=== PATIENT | female | born 1995 | race Caucasian/White ===

== ENCOUNTER 2017-06-03 00:59 | Observation (INO) | payer OTHER ==
[2017-06-03] MEDS ORDERED: Ketorolac INJ* 30 MG/ML 1 ML VIAL IV PUSH ONE (02:04)
[2017-06-03 02:13] LABS: Urine Appearance Cloudy; Urine Blood 3+ (Negative); Urine Color Red; Urine Ketones Trace (Negative); Urine Protein 2+(100 mg/dL) (Negative); Urine Specific Gravity 1.023 (1.010-1.030); Urine Urobilinogen Negative (Negative)
[2017-06-03 02:26] LABS: ABS Basophils 0 10^3/ul (0-0.2); ABS Eosinophils 0 10^3/ul (0-0.6); ABS Lymphocytes 1.5 10^3/ul (1.0-4.8); ABS Monocytes 1.4 10^3/ul (0-0.8); ABS Nucleated RBC 0 10^3/ul; Eosinophil % 0.2 % (0-6); Hematocrit 36 % (35-47); Hemoglobin 12.7 g/dl (12.0-16.0); Lymphocyte % 9.5 % (25-47); Mean Corpuscular HGB Conc 35 g/dl (31-36); Mean Corpuscular Hemoglobin 31 pg (27-31); Mean Corpuscular Volume 87 fL (80-97); Nucleated Red Blood Cells % 0; Platelet Count 227 10^3/ul (150-450); Red Blood Count 4.14 10^6/ul (4.0-5.4); Red Cell Distribution Width 13 % (10.5-15); White Blood Count 15.9 10^3/ul (3.5-10.8)
[2017-06-03 02:40] LABS: EGFR Non-African American 101.6 (>60)
[2017-06-03] MEDS ORDERED: Levofloxacin 750 MG IVPREMIX(* 750 MG/150 ML BAG IVPB ONE (03:36)
[2017-06-03] MEDS ORDERED: metroNIDAZOLE IV 500 MG/100ML* 500 MG/100 ML BAG IVPB ONE (03:37)
[2017-06-03] MEDS ORDERED: Morphine INJ* 4 MG/ML 1 ML CARPUJECT IV ONE (03:59)
[2017-06-03] MEDS ORDERED: Morphine VIAL* 4 MG/ML VIAL (1 ml vial) IV ONE ×2 (04:04→04:11)
[2017-06-03] MEDS ORDERED: Morphine VIAL* 4 MG/ML VIAL (1 ml vial) IV PRN (04:22)
[2017-06-03] MEDS ORDERED: Metoclopramide IV* 5 MG/ML 2 ML VIAL IV PRN (04:23)
[2017-06-03] MEDS ORDERED: NS 0.9% 1000 ML* 1,000 ML IV SCH (04:30)
--- NOTE | 2017-06-03 06:33 | ED ---
Sheila Mi Rebecca, scribed for Maximus Cortez MD on 06/03/17 at 0205 . Abdominal Pain/Female - HPI Summary HPI Summary: Pt is a 22 y/o F who presents to ED c/o abdominal pain. Sx began yesterday at approximately 1200 and worse since 0030, unchanged by Tums at 1600, Advil at 1730 and Tylenol at 0030. Pain is in the RLQ and characterized as aching. Sx slightly alleviated by vomiting. Additionally c/o N/V x2. Denies fever. PMHx HPV. LNMP / - sexually active and she has been spotting since then. - History of Current Complaint Chief Complaint: EDAbdPain Stated Complaint: ABD PAIN Time Seen by Provider: 06/03/17 01:53 Hx Obtained From: Patient Onset/Duration: Lasting Hours, Still Present Severity Initially: Severe - 8/10 Severity Currently: Moderate Pain Intensity: 5 Pain Scale Used: 0-10 Numeric Location: Discrete At: RLQ Character: Dull Alleviating Factor(s): Vomiting Associated Signs and Symptoms: Positive: Nausea, Vomiting Allergies/Adverse Reactions: Allergies Allergy/AdvReac Type Severity Reaction Status Date / Time Penicillins Allergy Unknown Verified 06/03/17 01:18 Reaction Details Home Medications: Home Medications NK [No Home Medications Reported] 06/03/17 [History Confirmed 06/03/17] PMH/Surg Hx/FS Hx/Imm Hx Endocrine/Hematology History: Denies: Hx Diabetes Cardiovascular History: Denies: Hx Hypertension Infectious Disease History: No Infectious Disease History: Denies: Traveled Outside the [place] in Last 30 Days - Family History Known Family History: Negative: Cardiac Disease - Social History Alcohol Use: Occasionally Substance Use Type: Reports: None Smoking Status (MU): Never Smoked Tobacco Review of Systems Negative: Fever Positive: Abdominal Pain, Vomiting, Nausea All Other Systems Reviewed And Are Negative: Yes Physical Exam - Summary Physical Exam Summary: Appearance: Well appearing, no pain distress Skin: warm, dry, reflects adequate perfusion Head/face: normal Eyes: EOMI, SENDY ENT: normal Neck: supple, non-tender Respiratory: CTA, breath sounds present Cardiovascular: RRR, pulses symmetrical Abdomen: mild LRQ tenderness, soft Bowel Sounds: present Musculoskeletal: normal, strength/ROM intact Neuro: normal, sensory motor intact, A&Ox3 Pelvic: She has a mild amount of blood in the vault, none from the cervix. No discharge. Right adnexal tenderness and no cervical motion tenderness. No left adnexal tenderness. Her cervix seems slightly displaced toward the left. Triage Information Reviewed: Yes Vital Signs On Initial Exam: Initial Vitals Temp Pulse Resp BP Pulse Ox 98 F 87 15 99/55 98 06/03/17 01:14 06/03/17 01:14 06/03/17 01:14 06/03/17 01:14 06/03/17 01:14 Vital Signs Reviewed: Yes Diagnostics - Vital Signs Vital Signs Temp Pulse Resp BP Pulse Ox 06/03/17 01:14 98 F 87 15 99/55 98 - Laboratory Lab Results: Lab Results 06/03/17 06/03/17 06/03/17 Range/Units 01:50 02:05 02:05 WBC 15.9 H (3.5-10.8) 10^3/ul RBC 4.14 (4.0-5.4) 10^6/ul Hgb 12.7 (12.0-16.0) g/dl Hct 36 (35-47) % MCV 87 (80-97) fL MCH 31 (27-31) pg MCHC 35 (31-36) g/dl RDW 13 (10.5-15) % Plt Count 227 (150-450) 10^3/ul MPV 8.0 (7.4-10.4) um3 Neut % (Auto) 81.4 (38-83) % Lymph % (Auto) 9.5 L (25-47) % [place] % (Auto) 8.7 H (0-7) % Eos % (Auto) 0.2 (0-6) % Baso % (Auto) 0.2 (0-2) % Absolute Neuts (auto) 13.0 H (1.5-7.7) 10^3/ul Absolute Lymphs (auto) 1.5 (1.0-4.8) 10^3/ul Absolute Monos (auto) 1.4 H (0-0.8) 10^3/ul Absolute Eos (auto) 0 (0-0.6) 10^3/ul Absolute Basos (auto) 0 (0-0.2) 10^3/ul Absolute Nucleated RBC 0 10^3/ul Nucleated RBC % 0 Sodium 138 L (139-145) mmol/L Potassium 3.4 L (3.5-5.0) mmol/L Chloride 104 (101-111) mmol/L Carbon Dioxide 24 (22-32) mmol/L Anion Gap 10 (2-11) mmol/L BUN 9 (6-24) mg/dL Creatinine 0.73 (0.51-0.95) mg/dL Est GFR ( Amer) 130.7 (>60) Est GFR (Non-Af Amer) 101.6 (>60) BUN/Creatinine Ratio 12.3 (8-20) Glucose 109 H (70-100) mg/dL Lactic Acid (0.5-2.0) mmol/L Calcium 9.3 (8.6-10.3) mg/dL Total Bilirubin 0.60 (0.2-1.0) mg/dL AST 21 (13-39) U/L ALT 15 (7-52) U/L Alkaline Phosphatase 64 (34-104) U/L C-Reactive Protein 4.57 (< 5.00) mg/L Total Protein 7.2 (6.4-8.9) g/dL Albumin 4.8 (3.2-5.2) g/dL Globulin 2.4 (2-4) g/dL Albumin/Globulin Ratio 2.0 (1-3) Lipase < 10 L (11.0-82.0) U/L Beta HCG, Quant < 0.60 mIU/mL Urine Color Red A Urine Appearance Cloudy Urine pH 6.0 (5-9) Ur Specific [place] 1.023 (1.010-1.030) Urine Protein 2+(100 mg/dl) A (Negative) Urine Ketones Trace A (Negative) Urine Blood 3+ A (Negative) Urine Nitrate Negative (Negative) Urine Bilirubin Negative (Negative) Urine Urobilinogen Negative (Negative) Ur Leukocyte Esterase Trace A (Negative) Urine WBC (Auto) Trace(0-5/hpf) (Absent) Urine RBC (Auto) 3+(>10/hpf) A (Absent) Ur Squamous Epith Cells Present A (Absent) Urine Bacteria Absent (Absent) Urine Glucose Negative (Negative) Urine Ascorbic Acid * A (Negative) 06/03/17 Range/Units 02:05 WBC (3.5-10.8) 10^3/ul RBC (4.0-5.4) 10^6/ul Hgb (12.0-16.0) g/dl Hct (35-47) % MCV (80-97) fL MCH (27-31) pg MCHC (31-36) g/dl RDW (10.5-15) % Plt Count (150-450) 10^3/ul MPV (7.4-10.4) um3 Neut % (Auto) (38-83) % Lymph % (Auto) (25-47) % [place] % (Auto) (0-7) % Eos % (Auto) (0-6) % Baso % (Auto) (0-2) % Absolute Neuts (auto) (1.5-7.7) 10^3/ul Absolute Lymphs (auto) (1.0-4.8) 10^3/ul Absolute Monos (auto) (0-0.8) 10^3/ul Absolute Eos (auto) (0-0.6) 10^3/ul Absolute Basos (auto) (0-0.2) 10^3/ul Absolute Nucleated RBC 10^3/ul Nucleated RBC % Sodium (139-145) mmol/L Potassium (3.5-5.0) mmol/L Chloride (101-111) mmol/L Carbon Dioxide (22-32) mmol/L Anion Gap (2-11) mmol/L BUN (6-24) mg/dL Creatinine (0.51-0.95) mg/dL Est GFR ( Amer) (>60) Est GFR (Non-Af Amer) (>60) BUN/Creatinine Ratio (8-20) Glucose (70-100) mg/dL Lactic Acid 1.7 (0.5-2.0) mmol/L Calcium (8.6-10.3) mg/dL Total Bilirubin (0.2-1.0) mg/dL AST (13-39) U/L ALT (7-52) U/L Alkaline Phosphatase (34-104) U/L C-Reactive Protein (< 5.00) mg/L Total Protein (6.4-8.9) g/dL Albumin (3.2-5.2) g/dL Globulin (2-4) g/dL Albumin/Globulin Ratio (1-3) Lipase (11.0-82.0) U/L Beta HCG, Quant mIU/mL Urine Color Urine Appearance Urine pH (5-9) Ur Specific [place] (1.010-1.030) Urine Protein (Negative) Urine Ketones (Negative) Urine Blood (Negative) Urine Nitrate (Negative) Urine Bilirubin (Negative) Urine Urobilinogen (Negative) Ur Leukocyte Esterase (Negative) Urine WBC (Auto) (Absent) Urine RBC (Auto) (Absent) Ur Squamous Epith Cells (Absent) Urine Bacteria (Absent) Urine Glucose (Negative) Urine Ascorbic Acid (Negative) Result Diagrams: 06/03/17 02:05 06/03/17 02:05 Lab Statement: Any lab studies that have been ordered have been reviewed, and results considered in the medical decision making process. - Ultrasound No standard instances Ultrasound Interpretation: Positive (See Comments) - Abdomen US: Acute appendicitis. ED physician reviewed this report. Ultrasound Interpretation Completed By: Radiologist Abdominal Pain Fem Course/Dx - Course Course Of Treatment: Pt with RLQ pain/pelvic pain and some vaginal bleeding. Not preg. Elevated WBC. Concern for torsion but US actually picked up a dilated appendix with appendicolith in the R pelvis. No ovarian pathology. This confirmed by radiologist. D/W Surgeon who will plan for OR in am. Started abx. Tx pain and nausea. - Diagnoses Differential Diagnosis: Positive: Appendicitis, Ectopic , Ovarian Cyst , Urinary Tract Infection, Other - torsion Provider Diagnoses: Right lower quadrant pain, Acute appendicitis - Provider Notifications Discussed Care Of Patient With: Stanton France Time Discussed With Above Provider: 03:34 Instructed by Provider To: Other - Making him aware of the case, wants to wait for the official ultrasound report and will see her in the morning. Discussed care of pt with Dr. France again at 0415, disclosing US results. Discharge - Sign-Out/Discharge Documenting (check all that apply): Discharge - Admit - Discharge Plan Condition: Fair Disposition: ADMITTED TO [facility] - Billing Disposition and Condition Condition: FAIR Disposition: [facility] [place] The documentation as recorded by the Sheila castelan Rebecca accurately reflects the service I personally performed and the decisions made by , Maximus Cortez MD.
[2017-06-03] MEDS ORDERED: Bupivacaine 0.25% SDV* 30 ML ONE (07:38)
--- NOTE | 2017-06-03 08:11 | RAD ---
INDICATION: Right adnexal pain COMPARISON: None TECHNIQUE: Real time ultrasound images of the right lower quadrant were acquired in mcnulty scale and Doppler color flow. FINDINGS: A blind-ending tubular structure measuring 2.3 cm in diameter is identified in the right lower quadrant. The wall thickness measures 0.4 cm. Structure is noncompressible. There is an echogenic structure measuring up to 3.1 cm in length causing shadowing consistent with an appendicolith. There is surrounding free fluid. IMPRESSION: In the correct clinical setting sonographic findings could be consistent with acute appendicitis due to a large appendicolith. Findings could be confirmed with contrast-enhanced CT of the abdomen and pelvis if clinically warranted.
[2017-06-03] MEDS ORDERED: Midazolam* 1 MG/ML 5 ML VIAL (5 MG) ONE (08:34)
[2017-06-03] MEDS ORDERED: Dexamethasone IV* 4 MG/ML 1 ML (4 MG) ONE (08:34)
[2017-06-03] MEDS ORDERED: fentaNYL* 50 MCG/ML 2 ML VIAL (100 MCG VIAL) ONE (08:34)
[2017-06-03] MEDS ORDERED: Atracurium* 10 MG/ML 10 ML VIAL ONE (08:34)
[2017-06-03] MEDS ORDERED: Ondansetron INJ* 2 MG/ML VIAL ONE (08:34)
[2017-06-03] MEDS ORDERED: Succinylcholine* 20 MG/ML 10 ML VIAL ONE (09:22)
[2017-06-03] MEDS ORDERED: Scopolamine 1.5 mg* PATCH TRANSDERM PRN (09:25)
[2017-06-03] MEDS ORDERED: Naloxone* 0.4 MG/ML 1 ML VIAL IV PRN (09:25)
[2017-06-03] MEDS ORDERED: Ondansetron INJ* 2 MG/ML VIAL IV PRN (09:25)
[2017-06-03] MEDS ORDERED: fentaNYL* 50 MCG/ML 2 ML VIAL (100 MCG VIAL) IV PRN (09:25)
[2017-06-03] MEDS ORDERED: HYDROcodone/ACETAMIN 5-325 MG* 1 TAB PO PRN (09:25)
[2017-06-03] MEDS ORDERED: oxyCODONE/Acetamin 5/325 MG* TAB PO PRN (09:25)
[2017-06-03] MEDS ORDERED: DiMENhydriNATE IV* 50 MG/ML VIAL IV PUSH PRN (09:25)
[2017-06-03] MEDS ORDERED: HYDROmorphone INJ* 1 MG/ML CARPUJECT SYRINGE IV PRN (09:25)
[2017-06-03] MEDS ORDERED: Ketorolac INJ* 30 MG/ML 1 ML VIAL ONE (09:46)
[2017-06-03] MEDS ORDERED: Neostigmine Methylsulfate* 1 MG/ML 10 ML VIAL (1 mg/ml) ONE (09:57)
[2017-06-03] MEDS ORDERED: Glycopyrrolate IV* 0.2 MG/ML 1 ML VIAL ONE (09:57)
--- NOTE | 2017-06-03 10:04 | BRIEFOPN ---
Brief Operative Note - Surgery Procedures: Pre-OP Diagnoses: acute appendicitis Post-op Diagnosis: same Procedure: Laparoscopic appendectomy Surgeon: Román Asst: none Anethesia: KVNGA EBL: minimal IVF: crystalloid Specimen: appendix Drains: none
[2017-06-03] MEDS ORDERED: oxyCODONE/Acetamin 5/325 MG* TAB ONE (11:34)
--- NOTE | 2017-06-03 14:16 | OP ---
CC: [facility] * DATE OF OPERATION: 06/03/17 - ROOM #331 DATE OF : 89 SURGEON: Stanton France MD [place]HE[place] ENGINEER: None. ANESTHESIOLOGIST: Francisco Purvis MD ANESTHESIA: General. PRE-OP DIAGNOSIS: Acute appendicitis. POST-OP DIAGNOSIS: Acute appendicitis. OPERATIVE PROCEDURE: Laparoscopic appendectomy. INDICATIONS: Ms. Lyons was admitted overnight, I saw her this morning, discussed the diagnosis of acute appendicitis and I recommended diagnostic laparoscopy appendectomy. I went over the details of the procedure, going over the risks, benefits, and alternatives. I spoke of the possible complications, which include but not limited to, bleeding, infection, abscess formation, need for additional surgery, injury to adjacent organs, and the possibility of an open procedure. The patient signed consent. ESTIMATED BLOOD LOSS: Minimal blood loss. SPECIMEN: Appendix, indurated with mild gangrenous changes but nonperforated. DESCRIPTION OF PROCEDURE: She was marked, taken to the operating room. She had already received preoperative antibiotics. She had sequential devices placed in bilateral lower extremities. General anesthesia was induced. The patient's abdomen was clipped of hair, prepped and draped in the standard surgical fashion. A time-out was performed. The folds of the umbilicus were elevated anteriorly and a Veress needle was inserted into the abdominal cavity, which was then allowed to insufflate to a pressure of 15 mmHg. The patient tolerated the insufflation well. An incision was made over this Veress needle, which was removed and a 5-mm trocar inserted. Laparoscope was inserted through this and there was evidence of free fluid in the pelvis. Additional trocars were then placed in the following position, a 5 -mm trocar in the suprapubic area and a 5 mm in the left lower quadrant. The table was repositioned and obvious appendicitis was identified. A window was made at the base of the appendix. Cautery was used to isolate the appendiceal artery. This was doubly clipped and then ligated. Additional tissue close to the base of the appendix was also clipped with 1 clip and then cut. We were then free around the healthy tissue of the appendix, which was then Endolooped with 0 Vicryl suture using two of them. We then cut in between , placed the appendix in an endoscopic retrieval bag. Review of the abdomen showed no evidence of other disease. The ovaries both left and right appeared intact and the small bowel was run retrograde from the terminal ileum approximately 60 cm and no evidence of Meckel diverticulum was identified. The patient was placed into neutral position again and the appendix in its endoscopic retrieval bag was brought out through the umbilical port site. The abdomen was then allowed to collapse. Trocars were removed under direct vision. All 3 skin incisions were reapproximated with 4-0 Monocryl subcuticular sutures. Steri-Strips and a sterile dressing were applied. The patient was woken up and transferred to the PACU in stable condition. [id number]/[facility] #: [id number] MTDD
[2017-06-03 15:52] VITALS: BP 130/62
[2017-06-06] MEDS ORDERED: Scopolamine PATCH Remove* 1 NOTE MISC PATCH OFF ONE (09:26)
== END 2017-06-03 15:09 | disposition home or self-care (01) ==
LOC: ED 00:59 → SSU 04:15
PROVIDERS: ADMIT Surgery; ATTEND Surgery
PROC: 0DTJ4ZZ Resection of Appendix, Percutaneous Endoscopic Approach (ICD-10-PCS; principal; 2017-06-03 08:00)
DX: K35.80 Unspecified acute appendicitis (principal); R11.2 Nausea with vomiting, unspecified; R10.31 Right lower quadrant pain; N93.9 Abnormal uterine and vaginal bleeding, unspecified; R10.2 Pelvic and perineal pain
CPT/HCPCS: 36415; 76705; 80053; 81003; 81015; 83605; 83690; 84702; 85025; 86140; 87077; 87086; 87491; 87591; 88304; 96374; 96375; 99283; A9270-GY; C1776; G0378; J0330; J1100; J1885; J2250; J2270; J2405; J2710; J2765; J3010; J3490